=== PATIENT | male | born 1940 | race Caucasian/White ===

== ENCOUNTER 2018-01-10 11:19 | Emergency (ER) | payer MEDICARE ==
[~2018-01-10] VITALS: Ht 182.9 cm; Wt 115.7 kg
[~2018-01-10 11:19] MED LIST: BETAMETHASONE D50 G1 TP; CLONAZEPAM 0.50.5 M1 PER TUBE; CLONAZEPAM 1 MG1 M1 PO; FISH OIL 1,4001 EACH; HYDROXYZINE HCL25 M1 PO; INDERAL LA60 MG; LEVOXYL200 MCG PO; MEDROL DOSPAK21 TAB PO; MULTI VITAMIN1 EACH; NAPROSYN500 MG PO; NORCO 5-325 TA1 EACH PO; PRILOSEC 20 MG20 MG PO
[2018-01-10] MEDS ORDERED: FLOMAX0.4 MG PO (11:33)
[2018-01-10] MEDS ORDERED: EFFEXOR XR75 MG PO (11:33)
[2018-01-10] MEDS ORDERED: INDERAL LA60 M1 PO (11:34)
[2018-01-10] MEDS ORDERED: LEVOXYL137 MCG PO (11:34)
[2018-01-10] MEDS ORDERED: FISH OIL 1,001000 M2 PO (11:35)
[2018-01-10 11:55] LABS: ABSOLUTE EOSINOPHILS 0.3 thou/uL (0.0-0.7); ABSOLUTE MONOCYTES 0.4 thou/uL (0.0-1.2); ABSOLUTE NEUTROPHILS 3.4 thou/uL (1.6-8.1); BASOPHILS 0.6 %; EOSINOPHILS 5.9 %; HEMATOCRIT 45.2 % (42.0-52.0); HEMOGLOBIN 15.8 gm/dL (14.0-18.0); LYMPHOCYTES 20.2 %; MCH 32.2 pg (26.0-34.0); MCHC 34.9 g/dL (28.0-37.0); MCV 92.3 fL (80.0-100.0); MONOCYTES 7.2 %; MPV 6.7 fl. (7.2-11.1); NUCLEATED RBCS 0 /100WBC; PLATELET COUNT* 172 thou/uL (150-400); POLYS 66.1 %; RDW-CV 13.5 % (10.5-14.5); WBC 5.1 thou/uL (4.0-11.0)
[2018-01-10 12:02] LABS: CALCIUM 8.3 mg/dL (8.5-10.1); POTASSIUM 4.4 mmol/L (3.5-5.1)
[2018-01-10 12:06] LABS: ALBUMIN 3.6 g/dL (3.4-5.0); TOTAL BILIRUBIN 1.3 mg/dL (<0.1-1.0); TOTAL PROTEIN 7.8 g/dL (6.4-8.2)
[2018-01-10 12:38] LABS: URINE BLOOD 2+ (Negative); URINE CLARITY CLEAR; URINE COLOR YELLOW; URINE GLUCOSE-RANDOM NEGATIVE (Negative); URINE KETONES NEGATIVE (Negative); URINE LEUKOCYTES-REFLEX NEGATIVE (Negative); URINE NITRITE-REFLEX NEGATIVE (Negative); URINE PROTEIN TRACE (Negative); URINE SPECIFIC GRAVITY 1.025 (1.005-1.030); URINE UROBILINOGEN 0.2 E.U./dl (0.2-1.0)
[2018-01-10 12:47] LABS: ICTOTEST (BILI CONFIRMATORY) Negative (Negative); URINE BILIRUBIN 1+ (Negative)
[2018-01-10 12:54] LABS: SQUAMOUS 0-3 Few /LPF (0-3)
[2018-01-10 12:55] LABS: BACTERIA-REFLEX 1-9 Few /HPF (None Seen); CASTS None Seen /LPF (None Seen); CRYSTALS None Seen /LPF (None Seen); MUCUS 4-6 Moderate strn/LPF (None Seen); URINE RBC 3-10 Few /HPF (0-2); URINE WBC-REFLEX 6-15 Few /HPF (0-5)
[2018-01-10] MEDS ORDERED: BACTRIM DS TAB1 EACH PO (14:33)
[2018-01-10 14:41] VITALS: BP 136/89
== END 2018-01-10 14:42 | disposition home or self-care (01) ==
LOC: M.ERS 11:19
PROVIDERS: Nurse Practitioner Family
DX: N30.91 Cystitis, unspecified with hematuria (principal); E03.9 Hypothyroidism, unspecified; K21.9 Gastro-esophageal reflux disease without esophagitis; Z90.89 Acquired absence of other organs; Z85.46 Personal history of malignant neoplasm of prostate; Z88.8 Allergy status to other drugs, medicaments and biological substances

== ENCOUNTER → 2018-01-17 | Outpatient (CLI) | payer MEDICARE ==
[~2018-01-17] MED LIST changes: +BACTRIM DS TAB1 EACH PO; +EFFEXOR XR75 MG PO; +FISH OIL 1,001000 M2 PO; +FLOMAX0.4 MG PO; +INDERAL LA60 M1 PO; +LEVOXYL137 MCG PO
== END ==
LOC: M.CT 01-12 16:38
DX: N28.89 Other specified disorders of kidney and ureter (principal); R91.1 Solitary pulmonary nodule; K76.0 Fatty (change of) liver, not elsewhere classified

== ENCOUNTER → 2018-03-30 | Outpatient (CLI) | payer MEDICARE | LOC: M.ULTRA 10:57 | DX: N28.1 Cyst of kidney, acquired (principal) ==

== ENCOUNTER 2018-11-12 12:37 | Emergency (ER) | payer MEDICARE ==
[~2018-11-12] VITALS: Ht 177.8 cm; Wt 113.4 kg
[2018-11-12 13:28] LABS: ABSOLUTE EOSINOPHILS 0.1 thou/uL (0.0-0.7); ABSOLUTE LYMPHOCYTES 0.8 thou/uL (0.8-5.3); ABSOLUTE MONOCYTES 0.8 thou/uL (0.0-1.2); ABSOLUTE NEUTROPHILS 5.1 thou/uL (1.6-8.1); BASOPHILS 0.3 %; EOSINOPHILS 0.9 %; HEMATOCRIT 47.2 % (42.0-52.0); HEMOGLOBIN 16.3 gm/dL (14.0-18.0); LYMPHOCYTES 12.6 %; MCH 32.1 pg (26.0-34.0); MCHC 34.5 g/dL (28.0-37.0); MONOCYTES 11.3 %; MPV 6.5 fl. (7.2-11.1); NUCLEATED RBCS 0 /100WBC; PLATELET COUNT* 244 thou/uL (150-400); POLYS 74.9 %; RBC 5.08 mil/uL (4.50-6.00); RDW-CV 12.8 % (10.5-14.5); WBC 6.7 thou/uL (4.0-11.0)
[2018-11-12 13:35] LABS: ANION GAP 8 mmol/L (7-16); BUN 29 mg/dL (7-18); CALCIUM 9.1 mg/dL (8.5-10.1); CHLORIDE 103 mmol/L (98-107); CO2 30 mmol/L (21-32); CREATININE 1.8 mg/dL (0.6-1.3); GLUCOSE 125 mg/dL (70-99); POTASSIUM 3.7 mmol/L (3.5-5.1); SODIUM 141 mmol/L (136-145)
[2018-11-12 13:42] LABS: ALBUMIN 3.8 g/dL (3.4-5.0); ALKALINE PHOSPHATASE 51 U/L (46-116); LIPASE 125 U/L (73-393); SGOT 19 U/L (15-37); SGPT 24 U/L (30-65); TOTAL BILIRUBIN 1.2 mg/dL (<0.1-1.0); TOTAL PROTEIN 8.4 g/dL (6.4-8.2); TROPONIN-I LEVEL <0.06 ng/mL (<0.06)
[2018-11-12] MEDS ORDERED: ZOFRAN ODT4 MG PO (14:46)
[2018-11-12 14:56] VITALS: BP 115/69
--- NOTE | 2018-11-12 15:40 | EKG ---
[place] [address] ELECTROCARDIOGRAM REPORT Name: CATHY LARSON Room: [facility]#: [id number] Admission: 11/12/18 Attend Phys: Discharge: 11/12/18 Date of : 38 Report #: [id number] THIS REPORT FOR: //name// [facility] ED Test Date: 2018-11-12 Test Time: 13:23:46 Pat Name: CATHY LARSON Department: Room: Gender: M Social Worker Assistant: DOMINGA : 1940 Requested By: Luis Delgado Order Number: [id number] MD: Delmer Oneil Measurements Intervals [place] Rate: 74 P: 48 MI: 166 QRS: -36 QRSD: 114 T: 27 QT: 391 QTc: 434 Interpretive Statements Sinus rhythm Borderline IVCD with LAD Inferior infarct, old Compared to ECG 05/08/2009 11:06:23 Myocardial infarct finding now present Electronically Signed On 11-12-2018 15:40:04 [employer]IED [employer] by Delmer Oneil [email or web address] <ELECTRONICALLY SIGNED> By: Delmer Oneil MD, [facility] 11/12/18 1540 1323 1323 Delmer Oneil MD, FACC /EPI
== END 2018-11-12 14:56 | disposition home or self-care (01) ==
LOC: M.ERS 12:37
PROVIDERS: Family Medicine
DX: K52.9 Noninfective gastroenteritis and colitis, unspecified (principal); E03.9 Hypothyroidism, unspecified; K21.9 Gastro-esophageal reflux disease without esophagitis; Z85.46 Personal history of malignant neoplasm of prostate; Z91.013 Allergy to seafood; Z90.89 Acquired absence of other organs

== ENCOUNTER → 2019-11-14 | Outpatient (CLI) | payer MEDICARE ==
[~2019-11-14] MED LIST changes: +ZOFRAN ODT4 MG PO
[2019-11-14 11:09] LABS: CREATININE 1.2 mg/dL (0.6-1.3)
== END ==
LOC: M.LAB 10:39 → M.CT 11:30
PROVIDERS: Surgery Vascular Surgery
DX: N28.1 Cyst of kidney, acquired (principal); I72.8 Aneurysm of other specified arteries; N20.0 Calculus of kidney; I25.10 Atherosclerotic heart disease of native coronary artery without angina pectoris; M25.78 Osteophyte, vertebrae; K57.30 Diverticulosis of large intestine without perforation or abscess without bleeding; I51.7 Cardiomegaly

== ENCOUNTER 2020-06-04 23:39 | Emergency (ER) | payer MEDICARE ==
[~2020-06-04] VITALS: Ht 182.9 cm; Wt 113.4 kg
[2020-06-05] MEDS ORDERED: PREDNISONE50 MG PO (01:12)
[2020-06-05 01:33] VITALS: BP 133/67
== END 2020-06-05 01:34 | disposition home or self-care (01) ==
LOC: M.ERS 23:39
DX: L50.9 Urticaria, unspecified (principal); E03.9 Hypothyroidism, unspecified; K21.9 Gastro-esophageal reflux disease without esophagitis; Z90.49 Acquired absence of other specified parts of digestive tract; Z85.46 Personal history of malignant neoplasm of prostate; Z91.013 Allergy to seafood

== ENCOUNTER 2020-08-28 12:44 | Emergency (ER) | payer MEDICARE ==
[~2020-08-28] VITALS: Ht 182.9 cm; Wt 113.4 kg
[~2020-08-28 12:44] MED LIST changes: +PREDNISONE50 MG PO
[2020-08-28 13:36] LABS: ABSOLUTE EOSINOPHILS 0.3 thou/uL (0.0-0.7); ABSOLUTE LYMPHOCYTES 1.4 thou/uL (0.8-5.3); ABSOLUTE MONOCYTES 0.4 thou/uL (0.0-1.2); ABSOLUTE NEUTROPHILS 2.9 thou/uL (1.6-8.1); BASOPHILS 0.9 %; EOSINOPHILS 6.3 %; HEMATOCRIT 41.8 % (42.0-52.0); HEMOGLOBIN 14.5 gm/dL (14.0-18.0); LYMPHOCYTES 27.4 %; MCH 31.1 pg (26.0-34.0); MCHC 34.6 g/dL (28.0-37.0); MCV 89.7 fL (80.0-100.0); MONOCYTES 8.1 %; MPV 6.2 fl. (7.2-11.1); NUCLEATED RBCS 0 /100WBC; PLATELET COUNT* 184 thou/uL (150-400); POLYS 57.3 %; RBC 4.66 mil/uL (4.50-6.00); RDW-CV 13.6 % (10.5-14.5)
[2020-08-28 13:44] LABS: PROTIME 10.4 Seconds (9.20-11.50)
[2020-08-28] MEDS ORDERED: MEDROLDOSEPACK PO (14:08)
[2020-08-28 14:14] VITALS: BP 170/74
== END 2020-08-28 14:14 | disposition home or self-care (01) ==
LOC: M.ERS 12:44
PROVIDERS: Nurse Practitioner Family
DX: R23.3 Spontaneous ecchymoses (principal); E03.9 Hypothyroidism, unspecified; K21.9 Gastro-esophageal reflux disease without esophagitis; Z79.899 Other long term (current) drug therapy; Z91.013 Allergy to seafood

== ENCOUNTER → 2020-11-20 | Outpatient (CLI) | payer MEDICARE ==
[~2020-11-20] MED LIST changes: +MEDROLDOSEPACK PO
[2020-11-20 08:21] LABS: CREATININE 1.1 mg/dL (0.6-1.3)
== END ==
LOC: M.LAB 07:36 → M.CT 09:00
PROVIDERS: ATTEND Surgery Vascular Surgery
DX: K57.30 Diverticulosis of large intestine without perforation or abscess without bleeding (principal); I72.8 Aneurysm of other specified arteries; N28.1 Cyst of kidney, acquired; I70.1 Atherosclerosis of renal artery; I77.4 Celiac artery compression syndrome

== ENCOUNTER 2021-11-02 13:38 | Emergency (ER) | payer MEDICARE ==
[~2021-11-02] VITALS: Ht 182.9 cm; Wt 108.9 kg
[2021-11-02 14:47] VITALS: BP 128/74
== END 2021-11-02 14:48 | disposition home or self-care (01) ==
LOC: M.ERS 13:38
DX: B34.9 Viral infection, unspecified (principal); E03.9 Hypothyroidism, unspecified; K21.9 Gastro-esophageal reflux disease without esophagitis; Z90.89 Acquired absence of other organs; Z98.890 Other specified postprocedural states; Z85.46 Personal history of malignant neoplasm of prostate; Z79.899 Other long term (current) drug therapy; Z88.8 Allergy status to other drugs, medicaments and biological substances